=== PATIENT | female | born 1990 | race African-American/Black ===

== ENCOUNTER 2016-04-11 09:21 | Emergency (ER) | payer OTHER ==
[~2016-04-11] VITALS: Wt 53.6 kg
[~2016-04-11 09:21] MED LIST: ACET500C5 PO; IBUP-1542 PO; ONDA4TAB8 PO
--- NOTE | 2016-04-11 11:11 | ERD ---
ER Documentation Chief Complaint Date/Time DATE: 04/11/16 TIME: 11:08 Chief Complaint LLQ ABD PAIN FOR THE PAST FEW DAYS. 10 WKS PREG. NO VAG BLEED HPI This patient is a 26-year-old female who is AB 3 LC 2 currently approximately 10 weeks presenting to the emergency department for left- sided suprapubic pain and cramping which is been ongoing for 4 days intermittently. She rates the pain a 6 out of 10 on the pain scale. Additionally the patient reports nausea and increased urinary frequency. The patient is taking vitamins but does not have an [employer] doctor. Patient denies any cough, dysuria, diarrhea, fevers, chills, or other symptoms at this time. ROS All systems reviewed and are negative except as per history of present illness. Medications Home Meds Active Scripts Ondansetron Hcl* (Zofran*) 4 Mg Tablet, 4 MG PO Q6H for NAUSEA AND/OR VOMITING, #30 TAB Prov:MINESH ARANGO PA-C 02/26/16 Acetaminophen* (Tylophen*) 500 Mg Capsule, 1 CAP PO Q6H Y for PAIN AND OR ELEVATED TEMP, #30 CAP Prov:MINESH ARANGO PA-C 02/26/16 Ibuprofen* (Ibuprofen*) 600 Mg Tablet, 600 MG PO Q6H Y for PAIN, #20 TAB Prov:CHIOMA BRAVO MD 08/20/15 Allergies Allergies: Coded Allergies: No Known Allergy (Unverified , 03/03/16) PMhx/Soc Medical and Surgical Hx: pt denies Medical Hx, pt denies Surgical Hx Anesthesia Reaction: No Hx Neurological Disorder: No Hx Respiratory Disorders: No Hx Cardiac Disorders: No Hx Psychiatric Problems: No Hx Miscellaneous Medical Probl: No Hx Alcohol Use: No Hx Substance Use: No Hx Tobacco Use: No Smoking Status: Never smoker FmHx Noncontributory for chief complaint Physical Exam Vitals Vital Signs Date Time Temp Pulse Resp B/P Pulse Ox O2 Delivery O2 Flow Rate FiO2 04/11/16 09:23 98.1 102 21 113/64 98 Physical Exam INITIAL VITAL SIGNS: Reviewed by me. GENERAL: Alert and interactive. No acute distress. HEAD: Head is normocephalic and atraumatic. EYES: EOMI. No scleral icterus. No conjunctival injection. ENT: Moist mucosa. NECK: Supple. Full range of motion. RESPIRATORY: Normal respiratory effort. Clear breath sounds bilaterally. No wheezing, rales, or rhonchi. CV: Regular rate and rhythm. Normal S1 S2. No S3 or S4. No murmurs. ABDOMEN: Soft, non-distended, non-tender. No guarding. No rebound. No masses. : Mild suprapubic tenderness to palpation on the left side. There is no suprapubic tenderness palpation on the right. There is no CVA tenderness bilaterally. EXTREMITIES: No deformity. SKIN: Warm and dry. NEUROLOGIC: Alert and oriented x 4. Speech is normal. Moves all extremities equally. No motor or sensory deficits noted. Results 24 hrs Laboratory Tests Test 04/11/16 11:05 Urine Bilirubin NEGATIVE Urine Clarity CLEAR Urine Color LT. YELLOW Urine Glucose NEGATIVE% Urine Hemoglobin NEGATIVE Urine Ketones NEGATIVE Urine Leukocyte Esterase NEGATIVE Urine Nitrite NEGATIVE Urine Specific [place] 1.015 Urine Total Protein NEGATIVE Urine Urobilinogen 0.2 E.U./dL Urine pH 6.5 Procedures/[facility] EMERGENCY DEPARTMENT COURSE / MEDICAL DECISION MAKING: This is a 26-year-old female who comes to the emergency room secondary to complaints of left-sided suprapubic tenderness and increased urinary frequency. Lab results reviewed and showed [] Radiology: Transabdominal and endovaginal imaging of the uterus interpreted by radiologist: PROCEDURE: US OB. CLINICAL INDICATION: Vaginal bleeding TECHNIQUE: Transabdominal and endovaginal imaging of the gravid uterus is available for review COMPARISON: None available FINDINGS: There is a single intrauterine demonstrating a heart rate of 174 bpm. The crown-rump length equals 3.65 cm, giving an estimated gestational age of 10 weeks 4 days by ultrasound criteria. No subchorionic hemorrhage is identified. The ovaries demonstrate a 7.2 cm simple appearing left ovarian cyst. IMPRESSION: 1. Single live intrauterine with an estimated gestational age of 10 weeks 4 days by ultrasound criteria and an estimated date of delivery of 2016. 2. 7.2 cm simple appearing left ovarian cyst. The primary diagnosis is suprapubic pain of unknown etiology. Secondary diagnosis is live intrauterine . I have low suspicion for ovarian torsion, ectopic , appendicitis, urinary tract infection, pyelonephritis, or other emergent conditions at this time. Discharge: I have discussed the lab results and diagnostic findings with the patient and answered any questions or concerns. The patient was discharged with a prescription for []. The patient was advised to followup with their PMD in 1- 2 days and to return to the Emergency Department if there are any new or worsening symptoms. The patient understood and agreed with the diagnosis, treatment and plan. The patient is stable for discharge at this time. Departure Diagnosis: Primary Impression: Suprapubic pain Additional Impression: Intrauterine Condition: Stable DENISHA DENIS PA-C Apr 11, 2016 11:11
[2016-04-11 11:38] LABS: ADD UMIC NO; URINE BILIRUBIN (Dip) NEGATIVE (NEGATIVE); URINE BLOOD (Dip) NEGATIVE (NEGATIVE); URINE COLOR LT. YELLOW (YELLOW); URINE GLUCOSE (Dip) NEGATIVE (NEGATIVE); URINE KETONES (Dip) NEGATIVE (NEGATIVE); URINE LEUKOCYTE ESTERASE (Dip) NEGATIVE (NEGATIVE); URINE NITRITE (Dip) NEGATIVE (NEGATIVE); URINE TOTAL PROTEIN (Dip) NEGATIVE (NEGATIVE); URINE UROBILINOGEN (Dip) 0.2 E.U./dL (0.1-1.0)
--- NOTE | 2016-04-11 11:48 | RADRPT ---
PROCEDURE: US OB. CLINICAL INDICATION: Vaginal bleeding TECHNIQUE: Transabdominal and endovaginal imaging of the gravid uterus is available for review COMPARISON: None available FINDINGS: There is a single intrauterine demonstrating a heart rate of 174 bpm. The crown-rump grace th equals 3.65 cm, giving an estimated gestational age of 10 weeks 4 days by ultrasound criteria. N o subchorionic hemorrhage is identified. The ovaries demonstrate a 7.2 cm simple appearing left ovar jay cyst. IMPRESSION: 1. Single live intrauterine with an estimated gestational age of 10 weeks 4 days by ultra sound criteria and an estimated date of delivery of 11/03/2016. 2. 7.2 cm simple appearing left ovarian cyst. RPTAT: HH .Bruna Painter MD, Date Time Electronically viewed and signed by .Bruna Painter MD, on 04/11/2016 11:48 .G/
[2016-04-11 12:10] LABS: BASOPHILS % 0.4 % (0.0-2.0); EOSINOPHILS # 0.1 10^3/ul (0.0-0.5); EOSINOPHILS % 0.9 % (0.0-7.0); HEMATOCRIT 35.9 % (37.0-47.0); HEMOGLOBIN 12.2 g/dl (12.0-16.0); LYMPHOCYTES # 1.8 10^3/ul (0.8-2.9); LYMPHOCYTES % 23.9 % (15.0-51.0); MEAN CORPUSCULAR HEMOGLOBIN 24.5 pg (29.0-33.0); MEAN CORPUSCULAR VOLUME 72.1 fl (82.0-101.0); MEAN PLATELET VOLUME 8.4 fl (7.4-10.4); MONOCYTE # 0.7 10^3/ul (0.3-0.9); MONOCYTES % 8.9 % (0.0-11.0); NEUTROPHILS % 65.9 % (39.0-77.0); PLATELET COUNT 334 10^3/UL (140-440); RED BLOOD COUNT 4.97 10^6/ul (4.20-5.40); RED CELL DISTRIBUTION WIDTH 12.8 % (11.5-14.5); UNCORRECTED WBC 7.6 10^3/ul (4.8-10.8); WHITE BLOOD COUNT 7.6 10^3/ul (4.8-10.8)
[2016-04-11 12:12] LABS: CONDITION 1; LH ANALYZER COMMENTS 1
== END 2016-04-11 13:03 | disposition home or self-care (01) ==
LOC: FTE 09:21
DX: O26.891 Other specified pregnancy related conditions, first trimester (principal); R10.32 Left lower quadrant pain; Z3A.10 10 weeks gestation of pregnancy
CPT/HCPCS: 36415; 76801; 81003; 84702; 85025; 86900; 86901; Z7502

== ENCOUNTER 2016-09-06 00:25 | Outpatient (CLI) | payer OTHER ==
[~2016-09-06] VITALS: Ht 147.3 cm; Wt 63.4 kg
[2016-09-06 00:28] VITALS: Ht 147.3 cm; Wt 63.4 kg
[2016-09-06] MEDS ORDERED: PRENAT PO (00:30)
[2016-09-06 00:44] VITALS: BP 114/61; PULSE 97; RESP 18
[2016-09-06] MEDS ORDERED: LACTATED RINGER'S 500 ML IV ONE (03:00)
[2016-09-06] MEDS ORDERED: LACTATED RINGER'S 1,000 ML IV SCH (03:00)
[2016-09-06 03:09] LABS: ADD SCAN DIFF NO
[2016-09-06 03:17] LABS: BASOPHILS % 0.3 % (0.0-2.0); EOSINOPHILS # 0.1 10^3/ul (0.0-0.5); EOSINOPHILS % 0.9 % (0.0-7.0); HEMATOCRIT 30.4 % (37.0-47.0); LYMPHOCYTES # 2.5 10^3/ul (0.8-2.9); LYMPHOCYTES % 19.6 % (15.0-51.0); MEAN CORPUSCULAR HEMOGLOBIN 23.8 pg (29.0-33.0); MEAN CORPUSCULAR HGB CONC 32.9 g/dl (32.0-37.0); MEAN CORPUSCULAR VOLUME 72.2 fl (82.0-101.0); MEAN PLATELET VOLUME 10.1 fl (7.4-10.4); MONOCYTE # 1.1 10^3/ul (0.3-0.9); MONOCYTES % 8.4 % (0.0-11.0); NEUTROPHIL # 8.6 10^3/ul (1.6-7.5); NEUTROPHILS % 67.7 % (39.0-77.0); PLATELET COUNT 273 10^3/UL (140-415); RED BLOOD COUNT 4.21 10^6/ul (4.20-5.40); RED CELL DISTRIBUTION WIDTH 14.3 % (11.5-14.5); WHITE BLOOD COUNT 12.7 10^3/ul (4.8-10.8)
[2016-09-06 03:26] LABS: ADD UMIC YES; UR ASCORBIC ACID NEGATIVE (NEGATIVE); UR BILIRUBIN (Dip) NEGATIVE (NEGATIVE); UR BLOOD (Dip) NEGATIVE (NEGATIVE); UR CLARITY SLIGHTLY CLOUDY (CLEAR); UR COLOR STRAW (YELLOW); UR GLUCOSE (Dip) NEGATIVE (NEGATIVE); UR KETONES (Dip) NEGATIVE (NEGATIVE); UR LEUKOCYTE ESTERASE (Dip) 2+ Leu/ul (NEGATIVE); UR NITRITE (Dip) NEGATIVE (NEGATIVE); UR RBC 1 /HPF (0-5); UR SPECIFIC GRAVITY (Dip) 1.003 (1.003-1.030); UR TOTAL PROTEIN (Dip) NEGATIVE (NEGATIVE); UR UROBILINOGEN (Dip) NEGATIVE (NEGATIVE)
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
== END 2016-09-06 05:30 | disposition home or self-care (01) ==
LOC: OBT 00:25 → L-D 00:27 → OBT 05:30
PROVIDERS: ATTEND Obstetrics & Gynecology
DX: O26.893 Other specified pregnancy related conditions, third trimester (principal); V89.2XXA Person injured in unspecified motor-vehicle accident, traffic, initial encounter; Z3A.31 31 weeks gestation of pregnancy
CPT/HCPCS: 36415; 76815; 76817; 81001; 85025; 85384; 85460; 86850; 86900; 86901; 96360; 96361; J7120; Z7500; G0463

== ENCOUNTER 2016-09-29 20:13 | Outpatient (CLI) | payer OTHER ==
[~2016-09-29] VITALS: Ht 147.3 cm; Wt 64.7 kg
[~2016-09-29 20:13] MED LIST changes: +PRENAT PO
[2016-09-29 20:41] VITALS: BP 112/63; PULSE 87; RESP 18; Ht 147.3 cm; Wt 64.7 kg
[2016-09-29] MEDS ORDERED: FERR134T PO (20:52)
--- NOTE | 2016-09-29 21:09 | RADRPT ---
PROCEDURE: OB ultrasound CLINICAL INDICATION: . OB ultrasound with fluid volume assessment. Intrauterine growth r estriction TECHNIQUE: Sonographic evaluation to assess the amniotic fluid volume was performed. Transabdomin al imaging of the gravid uterus was performed. COMPARISON: 09/22/2016 FINDINGS: The amniotic fluid index equals approximately 20.1 cm. heart rate: 144 Beats per minute. Presentation: Cephalic Placenta is partially visualized but appears posterior without evidence of abruption. IMPRESSION: Amniotic fluid index equals 20.1 cm. Previously 15.9 cm. RPTAT: AADD .Teofilo Crook MD, MD Date Time Electronically viewed and signed by .Teofilo Crook MD, on 09/29/2016 21:09 .B/
--- NOTE | 2016-09-29 21:44 | PN ---
Triage Information Date/Time Weeks of Gestation 35+ weeks : 6 Para: 2 Diabetes: none Hypertention: none Additional information IUGR Objective Vital Signs Date Time Temp Pulse Resp B/P Pulse Ox O2 Delivery O2 Flow Rate FiO2 09/29/16 20:41 98.2 87 18 112/63 Room Air Heart Rate: 120's Heart Rate Comments Category I Contractions: None Results/Medications Imaging Results GOMEZ 20 Assessment/Plan IUGR Antepartum Testing Reassuring D/C home ADA THORNTON MD Sep 29, 2016 21:43
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
== END 2016-09-29 21:45 | disposition home or self-care (01) ==
LOC: OBT 20:13 → L-D 20:14 → OBT 21:45
PROVIDERS: ATTEND Obstetrics & Gynecology
DX: O36.5930 Maternal care for other known or suspected poor fetal growth, third trimester, not applicable or unspecified (principal); Z3A.35 35 weeks gestation of pregnancy
CPT/HCPCS: 59025; 76815; Z7500; G0463

== ENCOUNTER 2016-10-02 19:26 | Outpatient (CLI) | payer OTHER ==
[~2016-10-02] VITALS: Ht 147.3 cm; Wt 62.9 kg
[~2016-10-02 19:26] MED LIST changes: -ACET500C5 PO; +FERR134T PO; -IBUP-1542 PO; -ONDA4TAB8 PO
[2016-10-02 19:39] VITALS: Ht 147.3 cm; Wt 62.9 kg
[2016-10-02 19:54] VITALS: BP 111/62; PULSE 88; RESP 18
--- NOTE | 2016-10-02 20:19 | PN ---
Triage Information Date/Time Weeks of Gestation 36 weeks : 3 Para: 2 Diabetes: none Hypertention: none Objective Vital Signs Date Time Temp Pulse Resp B/P Pulse Ox O2 Delivery O2 Flow Rate FiO2 10/02/16 19:54 97.9 88 18 111/62 Room Air Heart Rate: 130's Heart Rate Comments Category I Contractions: None Assessment/Plan IUGR GOMEZ to be done ADA THORNTON MD Oct 02, 2016 20:19
--- NOTE | 2016-10-02 22:42 | RADRPT ---
PROCEDURE: Obstetrical ultrasound greater than 14 weeks CLINICAL INDICATION: Decreased motion. Amniotic fluid index TECHNIQUE: Real time sonographic imaging of the gravid uterus is performed transabdominally and mu ltiple static jason scale and Doppler images are submitted for review as are measurements. The image s are reviewed on the PACS. COMPARISON: 09/29/2016 FINDINGS: There is a single living intrauterine gestation in cephalic presentation. The heart beat is estimated at 136 bpm. Placenta is fundal and grade 2. There is no evidence of placenta previa or abruption. The amniotic fluid index is normal estimated at 14.9 cm. RPTAT:HJJR IMPRESSION: 1. Single viable intrauterine gestation in cephalic presentation, the amniotic fluid index estimated at 14.9 cm, previously 20.1 cm on the study of 09/29/2016. 2. Placenta is fundal and grade II. Physician Paul Date Time Electronically viewed and signed by Physician Paul on 10/02/2016 22:41 /
--- NOTE | 2016-10-03 00:36 | TRIAGE ---
OB Triage Datetime Report Generated by CPN: 10/03/2016 00:36 Datetime: 10/02/2016 20:14 Heart Rate Comments: NST finished Datetime: 10/02/2016 19:30 Time of Arrival: 10/02/2016 19:09 EGA: 36.0 Arrived By: Ambulatory Arrived From: Home Chief Complaint: Repeat NST/GOMEZ Movement: Present Contractions: Denies/Absent Rupture of Membranes: Denies Vaginal Bleeding: None Vaginal Discharge: Denies Recent Sexual Intercouse: Denies Abdominal Trauma: Not Applicable Patient Complaints: None Time Provider Notified: 10/02/2016 20:12 Provider Notified: Delshad Initial Plan: NST/GOMEZ Datetime: 09/29/2016 20:34 EGA: 35.4 Datetime: 09/06/2016 01:04 EGA: 32.2 Datetime: 09/06/2016 00:49 Fall Risk Assessment Fall Score: 15 Fall Risk Score Definition: No Risk: No action required
== END 2016-10-02 21:11 | disposition home or self-care (01) ==
LOC: L-D 19:26 → OBT 19:26
PROVIDERS: ATTEND Obstetrics & Gynecology
DX: O36.5930 Maternal care for other known or suspected poor fetal growth, third trimester, not applicable or unspecified (principal); Z3A.36 36 weeks gestation of pregnancy
CPT/HCPCS: 76815; G0463

== ENCOUNTER 2016-10-16 10:04 | Inpatient (IN) | payer OTHER ==
[~2016-10-16] VITALS: Ht 147.3 cm; Wt 63.4 kg
[2016-10-16 10:22] VITALS: Ht 147.3 cm; Wt 63.4 kg
[2016-10-16 10:23] VITALS: BP 108/60; PULSE 72; RESP 18
[2016-10-16] MEDS ORDERED: CARBOPROST 250 MCG INJ IM PRN ×2 (10:30→17:30)
[2016-10-16] MEDS ORDERED: CEFAZOLIN 2 GM/50 ML (PMX) 50 ML IV SCH (10:30)
[2016-10-16] MEDS ORDERED: MISOPROSTOL 200 MCG TAB PR PRN ×2 (10:30→17:30)
[2016-10-16] MEDS ORDERED: OXYTOCIN 30 UNITS/LR 500 ML IV SCH (10:30)
[2016-10-16] MEDS ORDERED: METHYLERGONOVINE 0.2 MG INJ IM PRN ×2 (10:30→17:30)
[2016-10-16] MEDS ORDERED: OXYTOCIN 30 UNITS/LR 500 ML IV PRN ×2 (10:30→17:30)
[2016-10-16] MEDS ORDERED: LACTATED RINGER'S 1,000 ML IV SCH (10:59)
[2016-10-16 11:13] LABS: BASOPHILS % 0.2 % (0.0-2.0); EOSINOPHILS # 0.1 10^3/ul (0.0-0.5); EOSINOPHILS % 0.6 % (0.0-7.0); HEMATOCRIT 33.2 % (37.0-47.0); HEMOGLOBIN 11.1 g/dl (12.0-16.0); LYMPHOCYTES # 1.7 10^3/ul (0.8-2.9); MEAN CORPUSCULAR HEMOGLOBIN 23.9 pg (29.0-33.0); MEAN CORPUSCULAR HGB CONC 33.4 g/dl (32.0-37.0); MEAN CORPUSCULAR VOLUME 71.4 fl (82.0-101.0); MEAN PLATELET VOLUME 10.3 fl (7.4-10.4); MONOCYTE # 0.7 10^3/ul (0.3-0.9); MONOCYTES % 8.5 % (0.0-11.0); NEUTROPHILS % 69.5 % (39.0-77.0); PLATELET COUNT 336 10^3/UL (140-415); RED BLOOD COUNT 4.65 10^6/ul (4.20-5.40); RED CELL DISTRIBUTION WIDTH 14.3 % (11.5-14.5); WHITE BLOOD COUNT 8.6 10^3/ul (4.8-10.8)
[2016-10-16 11:48] LABS: INR 0.98; PARTIAL THROMBOPLASTIN TIME 27.2 Sec (25.0-35.0)
[2016-10-16] MEDS ORDERED: OXYTOCIN 10 UNIT INJ ONE (12:40)
[2016-10-16] MEDS ORDERED: morphine SULFATE/PF (10 MG/10 ML) INJ ONE (12:40)
[2016-10-16] MEDS ORDERED: EPHEDrine SULFATE 50 MG/5 ML SYG ONE (12:40)
[2016-10-16] MEDS ORDERED: CEFAZOLIN 1 GM INJ ONE (12:40)
[2016-10-16] MEDS ORDERED: METOCLOPRAMIDE 10 MG INJ ONE (12:40)
[2016-10-16] MEDS ORDERED: ONDANSETRON 4 MG INJ ONE (12:40)
[2016-10-16] MEDS ORDERED: OXYTOCIN 30 UNITS/LR 500 ML IV ONE (12:40)
--- NOTE | 2016-10-16 12:50 | HP ---
Date/Time of Note Date/Time of Note DATE: 10/16/16 TIME: 12:47 OB - History Hx of Present Chief Complaint: scheduled Estimated Due Date: Oct 30, 2016 : 8 Para: 2 Spontaneous : 1 Therapeutic : 4 Care: Good Care Ultrasounds: Normal mid trimester US Obstetrical Complications: Growth Restriction Medical Complications: None Past Family/Social History * Past Medical, Surgical, Family and Obstetric Histories reviewed from chart. GBS Status: Negative OB Admission Exam Vital Signs Vital Signs Vital Signs Date Time Temp Pulse Resp B/P Pulse Ox O2 Delivery O2 Flow Rate FiO2 10/16/16 10:23 97.6 72 18 108/60 Room Air Physical Exam HEENT: WNL Heart: Rhythm Normal Lungs: Clear, Equal Abdomen: WNL Extremities: Normal Reflexes: Normal Last 72 hours Lab Results CBC & BMP 10/16/16 10:34 OB Assessment/Plan Reason for admission: section Other Assessment: at 38 weeks Previous x2 growth restriction Plan: Section ADA THORNTON MD Oct 16, 2016 12:50
[2016-10-16 13:18] LABS: BARBITURATES Negative (NEGATIVE); BENZODIAZEPINES Negative (NEGATIVE); CANNABINOIDS Negative (NEGATIVE); COCAINE Negative (NEGATIVE); OPIATES Negative (NEGATIVE)
[2016-10-16] MEDS ORDERED: EPHEDrine SULFATE 50 MG/5 ML SYG IV PRN (14:30)
[2016-10-16] MEDS ORDERED: ONDANSETRON 4 MG INJ IV PRN (14:30)
[2016-10-16] MEDS ORDERED: NALOXONE (0.4 MG/ML) INJ IV PRN (14:30)
[2016-10-16] MEDS ORDERED: morphine SULFATE/PF (10 MG/10 ML) INJ SPINAL ONE (14:30)
[2016-10-16] MEDS ORDERED: morphine 4 MG/ML VIAL IV PRN ×2 (14:30)
--- NOTE | 2016-10-16 14:53 | OPR ---
DATE OF OPERATION: 10/16/2016 PREOPERATIVE DIAGNOSIS: at 38 weeks with previous C- section x2 and growth restriction. POSTOPERATIVE DIAGNOSIS: at 38 weeks with previous C- section x2 and growth restriction. OPERATION PERFORMED: Low transverse section. SURGEON: Dr. Santos. SCHEDULE SUPERVISOR: ANESTHESIA: Spinal. ANESTHESIOLOGIST: Dr. Glaser. OPERATIVE PROCEDURE: Patient was taken to the operating room, placed on the operating table. After successful spinal anesthesia was given, the patient was placed in supine position. The area was prepared and draped in the usual sterile fashion. Spinal anesthesia was tested and was satisfactory. Using a scalpel, Pfannenstiel incision was made about two fingerbreadths above the symphysis. The incision was carried down to the fascia. The fascia was incised and extended bilaterally with Gross scissors. Two Kochers were used to separate the fascia from the muscle. The muscle was dissected in the midline peritoneum, and the peritoneum was secured with two Kellys and incised with Metzenbaum scissors. Using a scalpel, a small transverse incision was made on the lower segment of the uterus. Upon entering the uterine cavity, bandage scissors were inserted to extend the incision bilaterally curved up. The baby was delivered from cephalic presentation. After suctioning free of amniotic fluid, the baby was handed off to the team in attendance. Apgars were 8 and 9. The placenta was delivered without difficulty. The uterus was closed with number 1 Monocryl continuous locked after assuring hemostasis. Both ovaries and the tubes looked normal. The peritoneal cavity was irrigated with warm saline. The peritoneum was closed with 2-0 Vicryl continuous. The fascia was closed with number 1 Vicryl continuous in two segments. The skin was closed with dianne. ESTIMATED BLOOD LOSS: 700 cc. COUNTS: All counts were correct. Dictated By: Jaswant Sanots MD /josé miguel/danny /Document#: [id number]
[2016-10-16 17:00] VITALS: BP 116/63; PULSE 59; RESP 16
[2016-10-16] MEDS: LACTATED RINGER'S 1,000 ML IV SCH (17:09)
[2016-10-16] MEDS: DIPHENHYDRAMINE 50 MG INJ IV PRN (17:29)
[2016-10-16 17:30] VITALS: BP 113/67; PULSE 68; RESP 16
[2016-10-16] MEDS ORDERED: LANOLIN 7 GM TUBE TOP PRN (17:30)
[2016-10-16] MEDS: OXYTOCIN 30 UNITS/LR 500 ML IV SCH ×2 (20:02→21:09)
[2016-10-16 20:10] VITALS: BP 102/53; PULSE 83; RESP 18
[2016-10-16] MEDS: SENNA/DOCUSATE NA (8.6MG/50MG) TAB PO SCH (20:53)
[2016-10-17] VITALS: BP 110/60; PULSE 75; RESP 18
[2016-10-17] MEDS: LACTATED RINGER'S 1,000 ML IV SCH ×2 (00:27→08:06)
[2016-10-17] MEDS: DIPHENHYDRAMINE 50 MG INJ IV PRN ×3 (00:28→12:46)
[2016-10-17 04:00] VITALS: BP 112/62; PULSE 72; RESP 18
[2016-10-17] MEDS: KETOROLAC 30 MG INJ IV PRN ×2 (06:38→12:47)
[2016-10-17 07:50] VITALS: BP 99/64; PULSE 74; RESP 17
[2016-10-17 08:23] LABS: ABNORMAL IP MESSAGE 1; BASOPHILS % 0.2 % (0.0-2.0); EOSINOPHILS % 0.3 % (0.0-7.0); HEMATOCRIT 30.1 % (37.0-47.0); HEMOGLOBIN 10.1 g/dl (12.0-16.0); LYMPHOCYTES # 1.3 10^3/ul (0.8-2.9); LYMPHOCYTES % 8.2 % (15.0-51.0); MEAN CORPUSCULAR HGB CONC 33.6 g/dl (32.0-37.0); MEAN CORPUSCULAR VOLUME 71.7 fl (82.0-101.0); MEAN PLATELET VOLUME 10.7 fl (7.4-10.4); MONOCYTE # 1.8 10^3/ul (0.3-0.9); MONOCYTES % 11.1 % (0.0-11.0); NEUTROPHIL # 12.7 10^3/ul (1.6-7.5); NEUTROPHILS % 79.5 % (39.0-77.0); PLATELET COUNT 282 10^3/UL (140-415); RED CELL DISTRIBUTION WIDTH 13.8 % (11.5-14.5)
[2016-10-17 09:08] LABS: POSITIVE DIFF @See below
[2016-10-17] MEDS: SENNA/DOCUSATE NA (8.6MG/50MG) TAB PO SCH ×2 (09:12→21:41)
[2016-10-17 12:00] VITALS: BP 110/74; PULSE 70; RESP 18
[2016-10-17] MEDS ORDERED: OXYCODONE/ACETAMINOPHEN (5/325) TAB PO PRN (14:30)
--- NOTE | 2016-10-17 15:13 | QN ---
Documentation Comment No complaint Afebrile VSS Abdomen soft ND POD #1 stable Ambulate Advance diet. ADA THORNTON MD Oct 17, 2016 15:13
[2016-10-17 15:50] VITALS: BP 98/54; PULSE 77; RESP 17
[2016-10-17] MEDS: OXYCODONE/ACETAMINOPHEN (5/325) TAB PO PRN (17:30)
[2016-10-17 20:05] VITALS: BP 119/63; PULSE 84; RESP 18
[2016-10-17] MEDS: IBUPROFEN 800 MG TAB PO SCH (21:41)
[2016-10-18 04:20] VITALS: BP 91/52; PULSE 78; RESP 17
[2016-10-18] MEDS: IBUPROFEN 800 MG TAB PO SCH ×3 (05:50→21:15)
[2016-10-18 06:30] LABS: ABNORMAL IP MESSAGE 1; BASOPHILS % 0.3 % (0.0-2.0); EOSINOPHILS # 0.1 10^3/ul (0.0-0.5); EOSINOPHILS % 1.2 % (0.0-7.0); HEMATOCRIT 28.6 % (37.0-47.0); HEMOGLOBIN 9.7 g/dl (12.0-16.0); MEAN CORPUSCULAR HEMOGLOBIN 24.1 pg (29.0-33.0); MEAN CORPUSCULAR HGB CONC 33.9 g/dl (32.0-37.0); MEAN PLATELET VOLUME 10.6 fl (7.4-10.4); MONOCYTE # 1.6 10^3/ul (0.3-0.9); MONOCYTES % 13.5 % (0.0-11.0); NEUTROPHIL # 7.8 10^3/ul (1.6-7.5); NEUTROPHILS % 67.3 % (39.0-77.0); PLATELET COUNT 298 10^3/UL (140-415); RED BLOOD COUNT 4.03 10^6/ul (4.20-5.40); RED CELL DISTRIBUTION WIDTH 13.5 % (11.5-14.5); WHITE BLOOD COUNT 11.5 10^3/ul (4.8-10.8)
[2016-10-18 06:47] LABS: POSITIVE DIFF @See below
[2016-10-18 08:20] VITALS: BP 104/55; PULSE 75; RESP 16
[2016-10-18] MEDS: OXYCODONE/ACETAMINOPHEN (5/325) TAB PO PRN ×4 (08:54→22:26)
[2016-10-18] MEDS: SENNA/DOCUSATE NA (8.6MG/50MG) TAB PO SCH ×2 (08:54→21:15)
[2016-10-18] MEDS ORDERED: IBUP800T25 PO (12:49)
--- NOTE | 2016-10-18 12:52 | DS ---
Date/Time of Note Date/Time of Note DATE: 10/18/16 TIME: 12:51 Obstetrical Discharge Record Final Diagnosis Final Diagnosis: Term delivered Section Section: Repeat Complications Other ( Growth Restriction) Condition on Discharge Physical Assessment Voiding: Yes Bowel Movement: Yes Breast: Soft, non-tender Fundus: Firm Abdomen and Incision: Incision intact Calf Tenderness: No Patient Condition: Stable ADA THORNTON MD Oct 18, 2016 12:52
[2016-10-18] MEDS ORDERED: MAGNESIUM HYDROXIDE 30ML CUP PO ONE (13:00)
[2016-10-18 16:00] VITALS: BP 102/21; PULSE 68; RESP 17
[2016-10-18 20:35] VITALS: BP 103/61; PULSE 72; RESP 17
[2016-10-19] VITALS: BP 112/64; PULSE 63; RESP 17
[2016-10-19 04:00] VITALS: BP 95/56; PULSE 74; RESP 18
[2016-10-19] MEDS: IBUPROFEN 800 MG TAB PO SCH ×2 (05:38→14:27)
[2016-10-19 08:10] VITALS: BP 102/59; PULSE 70; RESP 20
[2016-10-19] MEDS: SENNA/DOCUSATE NA (8.6MG/50MG) TAB PO SCH (08:10)
[2016-10-19] MEDS: OXYCODONE/ACETAMINOPHEN (5/325) TAB PO PRN ×3 (08:10→20:10)
[2016-10-19] MEDS ORDERED: DIPHTH/TET/ACEL PERTUSS (ADULT) 0.5 ML VIAL IM* ONE (09:00)
[2016-10-19 16:30] VITALS: BP 90/65; PULSE 67; RESP 18
[2016-10-19 19:30] VITALS: BP 111/65; PULSE 85; RESP 18
== END 2016-10-19 20:45 | disposition home or self-care (01) | DRG 765 ==
LOC: L-D 10:04 → PP1 16:54
PROVIDERS: ADMIT Obstetrics & Gynecology; ATTEND Obstetrics & Gynecology
PROC: 10D00Z1 Extraction of Products of Conception, Low, Open Approach (ICD-10-PCS; principal; 2016-10-16 12:30)
DX: O34.219 Maternal care for unspecified type scar from previous cesarean delivery (principal); O36.5930 Maternal care for other known or suspected poor fetal growth, third trimester, not applicable or unspecified; Z3A.38 38 weeks gestation of pregnancy; Z37.0 Single live birth
CPT/HCPCS: 80307; 85025; 85610; 85730; 86592; 86850; 86900; 86901; 88307; 90715; 94760; 99464; J0690; J1200; J1885; J2274; J2405; J2590; J2765; J7120

== ENCOUNTER 2016-11-12 18:20 | Emergency (ER) | payer OTHER ==
[~2016-11-12] VITALS: Ht 152.4 cm; Wt 46.4 kg
[~2016-11-12 18:20] MED LIST changes: +IBUP800T25 PO
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
[2016-11-12 19:36] VITALS: Ht 152.4 cm; Wt 46.4 kg
== END 2016-11-12 19:43 | disposition home or self-care (01) ==
LOC: E/R 18:20
DX: S01.512A Laceration without foreign body of oral cavity, initial encounter (principal); W50.3XXA Accidental bite by another person, initial encounter; Y92.9 Unspecified place or not applicable
CPT/HCPCS: 99282

== ENCOUNTER 2017-04-02 09:41 | Emergency (ER) | END 2017-04-02 10:40 | disposition home or self-care (01) ==

== ENCOUNTER 2018-11-26 20:52 | Outpatient (CLI) | payer OTHER ==
[~2018-11-26] VITALS: Ht 147.3 cm; Wt 52.8 kg
[~2018-11-26 20:52] MED LIST changes: +AMOX500C2 PO; +HUM100IN4 SQ; +IBUP-1544 PO; -IBUP800T25 PO; +TRAM50TA2 PO
[2018-11-26 21:00] VITALS: BP 101/58; PULSE 89; RESP 20; Ht 147.3 cm; Wt 52.8 kg
== END 2018-11-26 23:06 | disposition home or self-care (01) ==
LOC: OBT 20:52 → L-D 20:52 → OBT 23:06
PROVIDERS: ATTEND Obstetrics & Gynecology Gynecology
DX: O9A.212 Injury, poisoning and certain other consequences of external causes complicating pregnancy, second trimester (principal); S09.90XA Unspecified injury of head, initial encounter; S39.91XA Unspecified injury of abdomen, initial encounter; W18.30XA Fall on same level, unspecified, initial encounter; Y92.009 Unspecified place in unspecified non-institutional (private) residence as the place of occurrence of the external cause; O32.1XX0 Maternal care for breech presentation, not applicable or unspecified; O34.219 Maternal care for unspecified type scar from previous cesarean delivery; Z3A.20 20 weeks gestation of pregnancy
CPT/HCPCS: 76815; 76817; 80307; 81001; 85460; 87086; G0463